=== PATIENT | male | born 1990 | race Two or more races ===

== ENCOUNTER 2017-01-13 16:26 | Emergency (ER) | payer MEDICAID ==
[~2017-01-13] VITALS: Ht 180.3 cm; Wt 86.2 kg
[~2017-01-13 16:26] MED LIST: AMOXICILLIN500 MG ORAL; IBUPROFEN600 MG ORAL
[2017-01-13] MEDS ORDERED: PROMETHAZINE-D118 ML ORAL (16:58)
[2017-01-13] MEDS ORDERED: IBUPROFEN600 MG ORAL (16:58)
[2017-01-13] MEDS ORDERED: AMOXICILLIN500 MG ORAL (16:58)
[2017-01-13 17:07] VITALS: BP_SYST 126; BP_SYST 129; BP_DIAS 88; BP_DIAS 90
--- NOTE | 2017-01-13 21:55 | Emergency Room Report ---
History of Present Illness General Chief Complaint: Sore Throat Source: Patient Present Illness [facility] The patient is a 26-year-old male presenting for sore throat and cough for the past 5 days. He also admits to subjective fevers. Pain described as an 8/10 dull ache to the back of the throat does not radiate. Worse with swallowing and cough. He has not tried any medications yet. He denies any known sick contacts recent travel. Allergies: Coded Allergies: NO KNOWN ALLERGIES (Unverified Allergy, Unknown, 03/26/15) Patient History Past Medical History: see triage record Pertinent Family History: none Reviewed Nursing Documentation: PMH: Agreed, PSxH: Agreed Nursing Documentation-PMH Past Medical History: No Stated History Review of Systems All Other Systems: negative except mentioned in HPI Physical Exam Vital Signs Date Time Temp Pulse Resp B/P Pulse Ox O2 Delivery O2 Flow Rate FiO2 01/13/17 16:33 99.0 93 18 126/90 98 Room Air Sp02 EP Interpretation: reviewed, normal General Appearance: no apparent distress, alert, GCS 15, non-toxic Head: normocephalic, atraumatic Eyes: bilateral eye PERRL, bilateral eye normal inspection ENT: hearing grossly normal, TMs + canals normal, uvula midline, tonsillar swelling, pharyngeal erythema, tonsillar exudate Respiratory: chest non-tender, lungs clear, normal breath sounds, speaking full sentences Musculoskeletal: back normal, gait/station normal, normal range of motion, non- tender Neurologic: alert, oriented x3, responsive, motor strength/tone normal, sensory intact, speech normal Psychiatric: judgement/insight normal, memory normal, mood/affect normal, no suicidal/homicidal ideation Skin: normal color, no rash, warm/dry, well hydrated Lymphatic: adenopathy - cervical Medical Decision Making PA Attestation Dr. Hoang is my supervising physician. Patient management was discussed with my supervising physician Diagnostic Impression: Primary Impression: Pharyngitis, acute Qualified Codes: J02.9 - Acute pharyngitis, unspecified ER Course The patient is a 26-year-old male presenting for sore throat and cough Differential diagnosis include but not limited to pharyngitis, sinusitis, AOM, bronchitis, PNA Physical exam: Vitals within normal limits. Afebrile. No apparent distress HEENT exam: There is bilateral tonsillar edema, erythema, and exudate. Uvula midline. Moist mucous membranes. There is bilateral cervical lymphadenopathy. Lungs are clear to auscultation bilaterally Skin is warm and dry. No rash The patient will be discharged home with a prescription for amoxicillin and is given ER precautions. Patient will followup with primary care Last Vital Signs Date Time Temp Pulse Resp B/P Pulse Ox O2 Delivery O2 Flow Rate FiO2 01/13/17 17:07 99.0 18 126/90 98 Room Air 01/13/17 17:07 89 Status: improved Disposition: HOME, SELF-CARE Condition: Improved Scripts D-Methorphan Hb/Prometh Hcl* (PROMETHAZINE-DM SYRUP*) 118 Ml Syrup 5 ML ORAL Q6H Y for For Cough, #118 ML 0 Refills Prov: LISA VELA.A. 01/13/17 Amoxicillin* (AMOXIL*) 500 Mg Capsule 500 MG ORAL Q12HR, #20 CAP Prov: LISA VELA P.A. 01/13/17 Ibuprofen* (MOTRIN*) 600 Mg Tablet 600 MG ORAL Q8H Y for For Pain, #30 TAB 0 Refills Prov: LISA VELA P.A. 01/13/17 Referrals: BLANCA STAHL,REFERRING (PCP) Patient Instructions: Pharyngitis Additional Instructions: I discussed my findings with the patient. All questions and concerns have been answered. Treatment and medication compliance have been addressed. I advised the patient that they need to follow up with PMD in 3-5 days. Return to ED if pain remains or worsens, cough worsens or remains, you notice blood in your sputum, you notice wheezing, you experience a fever, or if needed for any reason. Patient verbalized understanding of discharge instructions. LISA VELA Jan 13, 2017 21:55
== END 2017-01-13 17:08 | disposition home or self-care (01) ==
LOC: EMR 17:07
DX: J02.9 Acute pharyngitis, unspecified (principal)
CPT/HCPCS: 99284

== ENCOUNTER 2017-10-05 07:24 | Emergency (ER) | payer MEDICAID ==
[~2017-10-05] VITALS: Ht 182.9 cm; Wt 95.3 kg
[~2017-10-05 07:24] MED LIST changes: +PROMETHAZINE-D118 ML ORAL
--- NOTE | 2017-10-05 07:27 | Emergency Room Report ---
History of Present Illness General Chief Complaint: To Be Triaged Source: Patient Present Illness HPI 27YOM walked in ear pain since last night. [place] "pop" at work then pain resolved. Went to sleep, woke this morning with severe pain. Denies recent Qtip use, flights, sick contacts. Denies fever/chills, drainage from ear, history of DM, frequent otitis media, pharyngitis Allergies: Coded Allergies: NO KNOWN ALLERGIES (Unverified Allergy, Unknown, 03/26/15) Patient History Past Medical History: none Past Surgical History: none Pertinent Family History: none Social History: Denies: smoking, alcohol use, drug use Immunizations: UTD Reviewed Nursing Documentation: PMH: Agreed; PSxH: Agreed Review of Systems All Other Systems: negative except mentioned in HPI Physical Exam Sp02 EP Interpretation: reviewed, normal General Appearance: normal inspection, well appearing, no apparent distress, alert, GCS 15, non-toxic Head: normocephalic, atraumatic Eyes: bilateral eye PERRL, bilateral eye EOMI ENT: normal ENT inspection, hearing grossly normal, normal pharynx, no angioedema, normal voice, uvula midline, moist mucus membranes, other - Left TM very red, canal erythematous. No drainage. No perforated TM. Neck: normal inspection, full range of motion, supple, thyroid normal, no meningismus, no bony tend Respiratory: normal inspection, lungs clear, normal breath sounds, no rhonchi, no respiratory distress, no retraction, no accessory muscle use, no wheezing, speaking full sentences Cardiovascular #1: regular rate, rhythm, no edema, no JVD, normal capillary refill Gastrointestinal: normal inspection, normal bowel sounds, non tender, soft, no mass, no peritonitis, non-distended, no guarding, no hernia, no pulsatile mass Genitourinary: no CVA tenderness Musculoskeletal: normal inspection, back normal, normal range of motion, no calf tenderness, pelvis stable, Jolene's Sign negative Neurologic: normal inspection, alert, oriented x3, responsive, manager underwriting III-XII nml as tested, motor strength/tone normal, cerebellar normal, normal gait, speech normal Psychiatric: normal inspection, judgement/insight normal, mood/affect normal, no suicidal/homicidal ideation, no delusions Skin: normal inspection, normal color, no rash Lymphatic: normal inspection, no adenopathy Medical Decision Making Diagnostic Impression: Primary Impression: Otitis media Qualified Codes: H65.192 - Other acute nonsuppurative otitis media, left ear ER Course VSS, afebrile Left otitis media without purulent drainage No mastoiditis Not diabetic Not septic appearing ER course: Patient has remained stable during ED stay. Disposition: Patient is to be discharged to home. Prescriptions given are augmentin, motrin Patient is instructed to follow up with their primary care doctor within 5 days. Strict return precautions discussed with patient such as fever, chills, worsening/severe pain, nausea, vomiting, which may indicate severe illness. Patient verbalizes understanding and agrees with plan. Please note that this Emergency Department Report was dictated using [employer] technology software, occasionally this can lead to erroneous entry secondary to interpretation by the dictation equipment Status: improved Disposition: HOME, SELF-CARE Scripts Ibuprofen* (MOTRIN*) 600 Mg Tablet 600 MG ORAL THREE TIMES A DAY for earache, #30 TAB 0 Refills Prov: SHASHANK HERNANDEZ M.D. 10/05/17 Amoxicillin/Potassium Clav 875-125* (AUGMENTIN 875-125 TABLET*) 1 Each Tablet 1 TAB ORAL TWICE A DAY for 7 Days, #14 TAB Prov: SHASHANK HERNANDEZ M.D. 10/05/17 SHASHANK HERNANDEZ M.D. Oct 05, 2017 07:27
[2017-10-05 07:31] VITALS: BP 139/95
[2017-10-05] MEDS ORDERED: NKM (07:35)
[2017-10-05] MEDS ORDERED: IBUPROFEN600 MG ORAL (07:41)
[2017-10-05] MEDS ORDERED: AUGMENTIN 875-1 EAC1 ORAL (07:41)
[2017-10-05 07:48] VITALS: BP 139/95
== END 2017-10-05 07:48 | disposition home or self-care (01) ==
LOC: EMR 07:30
DX: H66.92 Otitis media, unspecified, left ear (principal)
CPT/HCPCS: 99284

== ENCOUNTER 2017-10-26 10:07 | Emergency (ER) | payer MEDICAID ==
[~2017-10-26] VITALS: Ht 180.3 cm; Wt 94.3 kg
[~2017-10-26 10:07] MED LIST changes: +AUGMENTIN 875-1 EAC1 ORAL; +NKM
--- NOTE | 2017-10-26 10:46 | Emergency Room Report ---
History of Present Illness General Chief Complaint: Earache Source: Patient Present Illness HPI Patient present with complaints of pain pressure to the right ear He reports that he was here about a month ago with pain to the left ear Recently he has been having allergy symptoms with runny nose and a itchy eye Patient felt that when he leaned forward and bent his head forward he would have increased pain pressure to the right ear and it improves when he sits back up, denies any nausea or dizziness denies any fevers and denies any mastoid pain Allergies: Coded Allergies: NO KNOWN ALLERGIES (Unverified Allergy, Unknown, 03/26/15) Patient History Past Medical History: see triage record Pertinent Family History: none Reviewed Nursing Documentation: PMH: Agreed; PSxH: Agreed Nursing Documentation-PMH Past Medical History: No Stated History Review of Systems All Other Systems: negative except mentioned in HPI Physical Exam Vital Signs Date Time Temp Pulse Resp B/P (MAP) Pulse Ox O2 Delivery O2 Flow Rate FiO2 10/26/17 10:12 97.7 74 15 128/88 96 Room Air 97.7 Sp02 EP Interpretation: reviewed, normal General Appearance: well appearing, no apparent distress Head: normocephalic, atraumatic Eyes: bilateral eye PERRL, bilateral eye EOMI ENT: normal pharynx, no angioedema, TMs + canals normal Neck: supple Respiratory: lungs clear Cardiovascular #1: regular rate, rhythm Musculoskeletal: normal inspection Neurologic: alert, oriented x3, responsive Skin: no rash Medical Decision Making Diagnostic Impression: Primary Impression: Earache, right ER Course Patient appears to likely have some fluid behind the ear which causes some discomfort when changing positions and tilting forward no obvious bulging of the tympanic membrane no obvious erythema patient will have Attempt on decongestants and follow closely, Last Vital Signs Date Time Temp Pulse Resp B/P (MAP) Pulse Ox O2 Delivery O2 Flow Rate FiO2 10/26/17 10:12 97.7 74 15 128/88 96 Room Air 97.7 Status: unchanged Disposition: HOME, SELF-CARE Condition: Stable Additional Instructions: Patient is provided with the discharge instructions notified to follow up with primary doctor in the next 2-3 days otherwise return to the er with any worsening symptoms. Please note that this report is being documented using [employer] technology. This can lead to erroneous entry secondary to incorrect interpretation by the dictating instrument. Darlin Osuna DO Oct 26, 2017 10:46
[2017-10-26] MEDS ORDERED: ZYRTEC10 MG ORAL (10:47)
[2017-10-26 10:54] VITALS: BP 128/88
== END 2017-10-26 11:15 | disposition home or self-care (01) ==
LOC: EMR 10:55
DX: H92.01 Otalgia, right ear (principal)
CPT/HCPCS: 99283

== ENCOUNTER 2018-05-12 21:05 | Emergency (ER) | payer MEDICAID ==
[~2018-05-12] VITALS: Ht 180.3 cm; Wt 93.0 kg
[~2018-05-12 21:05] MED LIST changes: +ZYRTEC10 MG ORAL
[2018-05-12] MEDS ORDERED: DOXYCYCLINE MO100 MG ORAL (21:53)
[2018-05-12] MEDS ORDERED: HYDROCORTISONE-30 GM TOPIC (21:53)
--- NOTE | 2018-05-12 21:54 | Emergency Room Report ---
History of Present Illness General Chief Complaint: Skin Rash/Abscess Source: Patient Present Illness HPI Is a 27-year-old male with no past medical issue. He presents with chief complaint of a rash to his left foot. Onset yesterday. He noticed some pinkish discoloration to the foot. He sprayed some athlete's foot medicine on it. Today it became red and scaly. Minimal pain. Little bit of itching. He also has some discoloration to his skin of his lower extremity does been ongoing for months. No fever chills but no nausea no vomiting. Never had any rash. No history of autoimmune disease. Allergies: Coded Allergies: NO KNOWN ALLERGIES (Unverified Allergy, Unknown, 03/26/15) Patient History Past Medical History: see triage record, old chart reviewed Past Surgical History: none Pertinent Family History: none Social History: Denies: smoking Immunizations: other Reviewed Nursing Documentation: PMH: Agreed; PSxH: Agreed Nursing Documentation-PMH Past Medical History: No Stated History Review of Systems Eye: Denies: eye pain, blurred vision ENT: Denies: ear pain, nose congestion, throat swelling Respiratory: Denies: cough, shortness of breath Cardiovascular: Denies: chest pain, palpitations Gastrointestinal: Denies: abdominal pain, diarrhea, nausea, vomiting Musculoskeletal: Denies: back pain, joint pain Skin: Reports: rash Neurological: Denies: headache, numbness Endocrine: Denies: increased thirst, increased urine Hematologic/Lymphatic: Denies: easy bruising All Other Systems: negative except mentioned in HPI Physical Exam Vital Signs Date Time Temp Pulse Resp B/P (MAP) Pulse Ox O2 Delivery O2 Flow Rate FiO2 05/12/18 21:35 98.2 80 18 154/60 98 Room Air vitals with high blood pressure Sp02 EP Interpretation: reviewed, normal General Appearance: well appearing, no apparent distress, alert Head: normocephalic, atraumatic Eyes: bilateral eye PERRL, bilateral eye EOMI ENT: hearing grossly normal, normal pharynx Neck: full range of motion, supple, no meningismus Respiratory: chest non-tender, lungs clear, normal breath sounds Cardiovascular #1: regular rate, rhythm, no murmur Gastrointestinal: normal bowel sounds, non tender, no mass, no organomegaly, no bruit, non-distended Musculoskeletal: back normal, gait/station normal, normal range of motion, other - Left foot: There is a raised reddish, scaly, silvery rash on the dorsum of the foot. Measure about 5 x 3 cm. No wheezing. No discharge. Normal pulse. Neurologic: alert, oriented x3 Psychiatric: mood/affect normal Skin: warm/dry Medical Decision Making Diagnostic Impression: Primary Impression: Rash and other nonspecific skin eruption ER Course Patient with a rash on the dorsum of his foot. This look like psoriasis versus eczema. With acute onset, concerning for possible cellulitis also. I will cover him with antibiotics. He'll need a referral for solar technician versus prescription benefit specialist to check for autoimmune disease. no evidence of abscess or necrotizing fasciitis. Last Vital Signs Date Time Temp Pulse Resp B/P (MAP) Pulse Ox O2 Delivery O2 Flow Rate FiO2 05/12/18 21:35 98.2 80 18 154/60 98 Room Air Status: unchanged Disposition: HOME, SELF-CARE Condition: Stable Scripts Hydrocortisone/Aloe Vera 1%* (HYDROCORTISONE-ALOE 1% CREAM*) Y Cr 1 APPLIC TOPIC Q6H PRN for Itching, #30 GM Prov: Mark Spence MD 05/12/18 Doxycycline Monohydrate* (DOXYCYCLINE MONOHYDRATE*) 100 Mg Capsule 100 MG ORAL Q12H, #14 CAP 0 Refills Prov: Mark Spence MD 05/12/18 Additional Instructions: Follow-up with your doctor within a week. You may benefit from referral to see a solar technician a prescription benefit specialist to rule out psoriasis, eczema, or other autoimmune disease. Return if worse. Mark Spence MD May 12, 2018 21:54
[2018-05-12 21:55] VITALS: BP 120/83
[2018-05-12 21:59] VITALS: BP 120/83
== END 2018-05-12 22:22 | disposition home or self-care (01) ==
LOC: EMR 21:51
DX: R21 Rash and other nonspecific skin eruption (principal)
CPT/HCPCS: 99283

== ENCOUNTER 2018-06-07 22:02 | Emergency (ER) | payer MEDICAID ==
[~2018-06-07] VITALS: Ht 180.3 cm; Wt 92.5 kg
[~2018-06-07 22:02] MED LIST changes: +DOXYCYCLINE MO100 MG ORAL; +HYDROCORTISONE-30 GM TOPIC
[2018-06-07] MEDS ORDERED: NKM (22:12)
[2018-06-07 22:15] VITALS: BP 111/74
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
[2018-06-07] MEDS ORDERED: IBUPROFEN600 MG ORAL (22:54)
[2018-06-07] MEDS ORDERED: CYCLOBENZAPRINE10 MG ORAL (22:54)
[2018-06-07] MEDS ORDERED: Ketorolac 60mg Inj IM ONE (23:00)
[2018-06-07 23:35] VITALS: BP 111/74
--- NOTE | 2018-06-08 10:45 | Diagnostic Imaging Report ---
Indication: Neck Pain Findings: 3 views of the cervical spine were obtained. There is no acute fracture identified. Alignment is normal. The open-mouth odontoid view shows an intact dens and good alignment of the lateral masses with respect to the body of C2. There is no soft tissue swelling. Impression: Negative cervical spine examination.
== END 2018-06-07 23:35 | disposition home or self-care (01) ==
LOC: EMR 22:44
DX: S16.1XXA Strain of muscle, fascia and tendon at neck level, initial encounter (principal); S39.012A Strain of muscle, fascia and tendon of lower back, initial encounter; V43.52XA Car driver injured in collision with other type car in traffic accident, initial encounter; Y92.410 Unspecified street and highway as the place of occurrence of the external cause
CPT/HCPCS: 72040; 96372; 99283

== ENCOUNTER 2018-09-17 11:13 | Emergency (ER) | payer MEDICAID ==
[~2018-09-17] VITALS: Ht 180.3 cm; Wt 91.2 kg
[~2018-09-17 11:13] MED LIST changes: +CYCLOBENZAPRINE10 MG ORAL
[2018-09-17 11:21] VITALS: BP 134/89
--- NOTE | 2018-09-17 11:22 | NUR ---
ED Nurse Note: Patientwalked into ED c/o generalized body rash accompanied by a slight elevation in temperature, at time of arrival patients temperature was 99.4. patient presents with rashes all around his body, denies any SOB, patient is alert and oriented x4, ambulatory with a steady gait
[2018-09-17] MEDS ORDERED: MEDROL DOSEPAK4 MG ORAL (11:58)
[2018-09-17] MEDS ORDERED: BENADRYL25 MG ORAL (11:58)
[2018-09-17] MEDS ORDERED: IBUPROFEN600 MG ORAL ×2 (11:58→12:36)
--- NOTE | 2018-09-17 12:35 | Emergency Room Report ---
History of Present Illness General Chief Complaint: Skin Rash/Abscess Source: Patient Present Illness HPI Patient presents with complaints of rash Ongoing for the past one day patient reports that he had associated low-grade fever 2 days ago Patient does have 2 younger children 3 and 1 years old have also been sick over the past 4 days with low-grade fever however no obvious rash Patient has not been at the airport he suddenly denies any headache denies any redness to his eyes He does complain of some myalgia Denies any chest pain or shortness of breath Patient reports that he was immunized as a child Allergies: Coded Allergies: NO KNOWN ALLERGIES (Unverified Allergy, Unknown, 03/26/15) Patient History Past Medical History: see triage record Pertinent Family History: none Reviewed Nursing Documentation: PMH: Agreed; PSxH: Agreed Nursing Documentation-PMH Past Medical History: No Stated History Review of Systems All Other Systems: negative except mentioned in HPI Physical Exam Vital Signs Date Time Temp Pulse Resp B/P (MAP) Pulse Ox O2 Delivery O2 Flow Rate FiO2 09/17/18 11:14 99.3 101 20 134/89 95 Room Air Sp02 EP Interpretation: reviewed, normal General Appearance: well appearing, no apparent distress Head: normocephalic, atraumatic Eyes: bilateral eye PERRL, bilateral eye EOMI ENT: hearing grossly normal, normal pharynx, TMs + canals normal, uvula midline Neck: full range of motion, supple, no meningismus, no bony tend Respiratory: lungs clear, normal breath sounds, no rhonchi, no respiratory distress, no retraction, no accessory muscle use Cardiovascular #1: normal peripheral pulses, regular rate, rhythm, no edema, no gallop, no JVD, no murmur Gastrointestinal: normal bowel sounds, non tender, soft, no mass, no organomegaly, non-distended, no guarding, no hernia, no pulsatile mass, no rebound Musculoskeletal: normal inspection Neurologic: oriented x3, responsive, typewriter mechanic III-XII nml as tested, motor strength/ tone normal, sensory intact Psychiatric: mood/affect normal Skin: other - Patient has a rash involving the upper torso upper arms facial region. There are several areas that have scab formation, other areas that have a small early blister type appearance, no obvious dermatomal pathology, no sloughing of the skin Lymphatic: normal inspection, no adenopathy Medical Decision Making Diagnostic Impression: Primary Impression: Rash and other nonspecific skin eruption Additional Impression: viral exanthem ER Course Multiple differentials are entertained Including multiple viral exanthem type pathology such as measles, rubeola, rubella Patient does not appear septic or toxic There is no obvious involvement of the conjunctiva Patient is treated conservatively He has notified of the possible pathogenic pathology of this and the requirement to avoid any public contact Patient will follow closely with primary physician or return with any worsening symptoms Last Vital Signs Date Time Temp Pulse Resp B/P (MAP) Pulse Ox O2 Delivery O2 Flow Rate FiO2 09/17/18 11:21 99.3 96 20 134/89 95 Room Air Status: improved Disposition: HOME, SELF-CARE Condition: Improved Scripts Ibuprofen* (MOTRIN*) 600 Mg Tablet 600 MG ORAL Q8H PRN for For Pain, #20 TAB 0 Refills Prov: CalialvaDarlin 09/17/18 Diphenhydramine Hcl* (BENADRYL*) 25 Mg Capsule 25 MG ORAL Q6H PRN for Itching for 7 Days, CAP Prov: Darlin Osuna DO 09/17/18 Methylprednisolone (Methylprednisolone*) 4MG Dspk 4 MG ORAL DIRECTED for 6 Days, #21 EA 0 Refills Day 1: Two tablets before breakfast, one after lunch, one after dinner, and two at bedtime. If started late in the day, take all six tablets at once or divide into two or three doses, unless otherwise directed by prescriber. Day 2: One tablet before breakfast, one after lunch, one after dinner, and two at bedtime Day 3: One tablet before breakfast, one after lunch, one after dinner, and one at bedtime Day 4: One tablet before breakfast, one after lunch, and one at bedtime Day 5: One tablet before breakfast and one at bedtime Day 6: One tablet before breakfast Prov: Darlin Osuna DO 09/17/18 Ibuprofen* (MOTRIN*) 600 Mg Tablet 600 MG ORAL Q8H PRN for For Pain, #20 TAB 0 Refills Prov: CalialvaDarlin 09/17/18 Departure Forms: Return to Work Return to Work in (Days): 4 Return to Work Date: Sep 21, 2018 Patient Instructions: Rash, [place], Pediatric Additional Instructions: Your illness likely has to do with a viral rash. This can be communicable, and you require to be isolated from general public. Please wear a mask at all times and follow-up with your primary physician as soon as possible Patient is provided with the discharge instructions notified to follow up with primary doctor in the next 2-3 days otherwise return to the er with any worsening symptoms. Please note that this report is being documented using [employer] technology. This can lead to erroneous entry secondary to incorrect interpretation by the dictating instrument. Darlin Osuna DO Sep 17, 2018 12:35
[2018-09-17 12:42] VITALS: BP 114/51
--- NOTE | 2018-09-17 12:44 | NUR ---
ED Nurse Note: Patient cleared to be d/c per ERMD. D/C instruction and prescription provided. Patient education done via discussion and handout, Patient verbalized understanding and agrees with plan. Patient ambulated out steady gait with her belongings. Wristband removed. Mask provided. Provided education on isolation precaution.
[2018-09-18] MEDS ORDERED: DOXYCYCLINE MO100 MG ORAL (23:50)
[2018-09-18] MEDS ORDERED: HYDROCODON-ACE1 EA15 ORAL (23:50)
[2018-09-18] MEDS ORDERED: HYDROCORTISONE28 G2 TP (23:51)
== END 2018-09-17 12:46 | disposition home or self-care (01) ==
LOC: EMR 11:44
DX: R21 Rash and other nonspecific skin eruption (principal); B09 Unspecified viral infection characterized by skin and mucous membrane lesions
CPT/HCPCS: 99283; J7512

== ENCOUNTER 2018-09-18 22:35 | Emergency (ER) | payer MEDICAID ==
[~2018-09-18] VITALS: Ht 180.3 cm; Wt 91.2 kg
[~2018-09-18 22:35] MED LIST changes: +BENADRYL25 MG ORAL; +MEDROL DOSEPAK4 MG ORAL
[2018-09-18 22:50] VITALS: BP 138/86
--- NOTE | 2018-09-18 22:51 | NUR ---
ED Nurse Note: Patient presents with complaints of full body rash and pain all over. 8/10 pain with h/o fever.
[2018-09-18] MEDS ORDERED: Morphine Sulfate 2mg/ml Inj(IV/IM USE ONLY) IM ONE (23:00)
[2018-09-18] MEDS ORDERED: Bactrim-DS 1 tab ORAL ONE (23:00)
[2018-09-18 23:45] VITALS: BP 138/86
--- NOTE | 2018-09-18 23:45 | NUR ---
ED Nurse Note: Patient cleared for discharge, no s/s of avute distress. Patient A&Ox4, ambulating with steady gait, ID band removed. patient accompanied by father upon departure and verbalized understanding of discharge instructions.
[2018-09-18] MEDS ORDERED: DOXYCYCLINE MO100 MG ORAL (23:50)
[2018-09-18] MEDS ORDERED: HYDROCODON-ACE1 EA15 ORAL (23:50)
[2018-09-18] MEDS ORDERED: HYDROCORTISONE28 G2 TP (23:51)
--- NOTE | 2018-09-18 23:52 | Emergency Room Report ---
History of Present Illness General Chief Complaint: Skin Rash/Abscess Source: Patient Present Illness [facility] This is a 28-year-old male with no past medical history he presents with a rash. Was here recently and diagnosed with roseola. Now respiratory is whole body. Very itchy. Very painful. His medication not helping. No nausea no vomiting. No fever chills but no sick contact. Pain is 8 out of 10. Severe itching. No recent travel. no recent hot tub. Allergies: Coded Allergies: NO KNOWN ALLERGIES (Unverified Allergy, Unknown, 03/26/15) Patient History Past Medical History: see triage record, old chart reviewed Past Surgical History: none Pertinent Family History: none Social History: Denies: smoking Immunizations: other Reviewed Nursing Documentation: PMH: Agreed; PSxH: Agreed Nursing Documentation-PMH Past Medical History: No Stated History Review of Systems Eye: Denies: eye pain, blurred vision ENT: Denies: ear pain, nose congestion, throat swelling Respiratory: Denies: cough, shortness of breath Cardiovascular: Denies: chest pain, palpitations Gastrointestinal: Denies: abdominal pain, diarrhea, nausea, vomiting Musculoskeletal: Denies: back pain, joint pain Skin: Reports: rash Neurological: Denies: headache, numbness Endocrine: Denies: increased thirst, increased urine Hematologic/Lymphatic: Denies: easy bruising All Other Systems: negative except mentioned in HPI Physical Exam Vital Signs Date Time Temp Pulse Resp B/P (MAP) Pulse Ox O2 Delivery O2 Flow Rate FiO2 09/18/18 22:50 98.1 79 18 138/86 95 Room Air vitals normal Sp02 EP Interpretation: reviewed, normal General Appearance: well appearing, no apparent distress, alert Head: normocephalic, atraumatic Eyes: bilateral eye PERRL, bilateral eye EOMI ENT: hearing grossly normal, normal pharynx Neck: full range of motion, supple, no meningismus Respiratory: chest non-tender, lungs clear, normal breath sounds Cardiovascular #1: regular rate, rhythm, no murmur Gastrointestinal: normal bowel sounds, non tender, no mass, no organomegaly, no bruit, non-distended Musculoskeletal: back normal, gait/station normal, normal range of motion Neurologic: alert, oriented x3 Psychiatric: mood/affect normal Skin: warm/dry, rash - Diffuse small circular erythematous rash on body. No drainage. Medical Decision Making Diagnostic Impression: Primary Impression: Cellulitis Qualified Codes: L03.90 - Cellulitis, unspecified ER Course Patient with a diffuse rash. This could be pityriasis Carmella. Could be a viral infection. Because of the severe spread and itchiness and redness, we'll treat for possible secondary bacterial infection. No evidence of meningitis or necrotizing fasciitis Last Vital Signs Date Time Temp Pulse Resp B/P (MAP) Pulse Ox O2 Delivery O2 Flow Rate FiO2 09/18/18 22:50 98.1 93 18 138/86 95 Room Air Status: improved Disposition: HOME, SELF-CARE Condition: Stable Scripts Hydrocortisone Acetate 1% Onit (HYDROCORTISONE 1% OINT) Y Oint 28 GM TP BID, #56 GM Prov: Mark Spence MD 09/18/18 Hydrocodone/Acetaminophen 5-325* (HYDROCODONE/ACETAMINOPHEN 5-325*) 1 Each Tablet 1 TAB ORAL Q6H PRN for For Pain, #15 TAB 0 Refills Prov: Mark Spence MD 09/18/18 Doxycycline Monohydrate* (DOXYCYCLINE MONOHYDRATE*) 100 Mg Capsule 100 MG ORAL Q12H, #14 CAP 0 Refills Prov: Mark Spence MD 09/18/18 Additional Instructions: Follow-up with your doctor in 7 days. Return if symptom worsen. Mark Spence MD Sep 18, 2018 23:52
== END 2018-09-18 23:45 | disposition home or self-care (01) ==
LOC: EMR 23:23
DX: L03.90 Cellulitis, unspecified (principal)
CPT/HCPCS: 96372; 99283; J2270